=== PATIENT | female | born 1995 | race Caucasian/White ===

== ENCOUNTER 2023-07-21 19:53 | Emergency (ER) | payer MEDICAID ==
[~2023-07-21] VITALS: Ht 160 cm; Wt 99.8 kg
[2023-07-21 20:25] VITALS: BP 135/80; PULSE 83; RESP 17; TEMP 98.2; O2SAT 100
[2023-07-21] MEDS ORDERED: KETOROLAC 30 MG/ML VIAL IM ONE (23:10)
[2023-07-21] MEDS ORDERED: NAPR-54 PO (23:45)
[2023-07-21] MEDS ORDERED: CYCL-711 PO (23:45)
[2023-07-21 23:55] VITALS: BP 135/80; PULSE 83; RESP 17; TEMP 98.2; O2SAT 100
== END 2023-07-21 23:55 | disposition home or self-care (01) ==
LOC: MED 19:53
DX: M79.661 Pain in right lower leg (principal); Z79.899 Other long term (current) drug therapy
CPT/HCPCS: 73590; 81025; 93971; 96372; 99285; J1885